=== PATIENT | female | born 1945 | race Caucasian/White ===

== ENCOUNTER → 2020-06-22 | Outpatient (CLI) | payer OTHER ==
[~2020-06-22] VITALS: Ht 152.4 cm; Wt 54.0 kg
[~2020-06-22] MED LIST: CALCIUM 500 +1 EACH PO; ELIQUIS5 MG PO; FLECAINIDE ACET50 M2 PO; MAGOX 400400 MG PO; MEGA BIOTIN10000 MCG PO; TRAMADOL 50 MG50 MG PO; UNICOMPLEX M TA1 TA1 PO; ZANAFLEX4 MG PO; ZINC50 M1 PO
[2020-06-22 14:40] VITALS: BP 110/70
== END ==
LOC: M.INT 13:55
PROVIDERS: ATTEND Family Medicine
DX: I48.91 Unspecified atrial fibrillation (principal); M81.0 Age-related osteoporosis without current pathological fracture

== ENCOUNTER → 2020-06-29 | Outpatient (CLI) | payer OTHER ==
[~2020-06-29] VITALS: Ht 152.4 cm; Wt 54.0 kg
[2020-06-29 09:45] VITALS: BP 128/48
[2020-06-29 09:48] LABS: HEMATOCRIT 36.6 % (37.0-47.0); HEMOGLOBIN 12.3 gm/dL (12.0-15.0); MCH 30.2 pg (26.0-34.0); MCHC 33.6 g/dL (28.0-37.0); MCV 89.7 fL (80.0-100.0); MPV 7.4 fl. (7.2-11.1); RBC 4.08 mil/uL (4.20-5.00); RDW-CV 13.8 % (10.5-14.5); WBC 7.6 thou/uL (4.0-11.0)
[2020-06-29 10:03] LABS: CALCIUM 9.7 mg/dL (8.5-10.1); CREATININE 0.8 mg/dL (0.6-1.3); POTASSIUM 4.4 mmol/L (3.5-5.1)
[2020-06-29 10:08] LABS: ALBUMIN 3.8 g/dL (3.4-5.0); TOTAL BILIRUBIN 0.6 mg/dL (<0.1-1.0); TOTAL PROTEIN 6.8 g/dL (6.4-8.2)
[2020-06-29 10:23] LABS: APTT 27.1 Seconds (25.0-31.3); PROTIME 10.5 Seconds (9.20-11.50)
[2020-06-29 12:25] VITALS: BP 142/43
[2020-06-29 12:42] VITALS: BP 140/42
[2020-06-29 13:02] VITALS: BP 112/45
== END | disposition home or self-care (01) ==
LOC: M.MRI 08:11
PROVIDERS: ATTEND Radiology Diagnostic Radiology
DX: M54.9 Dorsalgia, unspecified (principal); M80.08XA Age-related osteoporosis with current pathological fracture, vertebra(e), initial encounter for fracture; I48.91 Unspecified atrial fibrillation; Z98.890 Other specified postprocedural states; Z79.899 Other long term (current) drug therapy; Z79.01 Long term (current) use of anticoagulants